=== PATIENT | male | born 1980 | race Caucasian/White ===

== ENCOUNTER 2025-01-16 16:46 | Emergency (ER) | payer BC, SELFPAY ==
[2025-01-16 16:47] VITALS: BP 147/112; PULSE 113; RESP 17; TEMP 36.2; O2SAT 99; BMI 21.2
[2025-01-16 17:33] VITALS: BP 187/105; PULSE 89; RESP 18; O2SAT 100
--- NOTE | 2025-01-16 17:44 | RAD_ITS ---
EXAM: XR Right Knee Complete, 4 or More Views CLINICAL INDICATION: PAIN/SWELLING TECHNIQUE: Four or more views of the right knee. COMPARISON: No relevant prior studies available. FINDINGS: BONES/JOINTS: Unremarkable. No acute fracture. No dislocation. SOFT TISSUES: Unremarkable. RAD/Knee 4 or More Views IMPRESSION: No acute fracture. Reading Location: [id number]
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
[2025-01-16] MEDS: Ketorolac 30 MG/ML Syringe IM (17:55)
[2025-01-16 19:16] VITALS: BP 187/105; PULSE 89; RESP 18; TEMP 36.7; O2SAT 100
== END 2025-01-16 19:17 | disposition home or self-care (01) ==
PROVIDERS: Emergency Provider Student in an Organized Health Care Education/Training Program; Visit Provider Student in an Organized Health Care Education/Training Program
DX: M25.561 Pain in right knee (principal); F17.210 Nicotine dependence, cigarettes, uncomplicated
CPT/HCPCS: 73564; 96372; 99282

== ENCOUNTER → 2025-02-20 | Outpatient (CLI) | payer BC, SELFPAY ==
[2025-02-20 15:37] LABS: Hematocrit 38.4 % (40-54); Hemoglobin 13.3 g/dL (13.0-16.5); Immature Granulocytes Count 0.010 X10^3/uL (0.0-0.0); Mean Corp Hgb Conc 34.6 g/dL (32-36); Mean Corpuscular Volume 86.1 fL (80-94); Mean Platelet Vol. 10.6 fl (6.2-12.0); NRBC Flagged by Analyzer 0 % (0-5); Platelet Count 256 K/mm3 (150-450); RBC Distribution Width CV 12.4 % (11.6-14.6); RBC Distribution Width SD 39.2 fl (35.1-43.9); Red Blood Count 4.46 M/mm3 (4.6-6.2); White Blood Count 7.7 K/mm3 (4.4-11.0)
[2025-02-20 16:54] LABS: CRP 12.40 mg/L (0.0-3.0)
--- OUTSIDE RECORDS SUMMARY | 2025-02-20 19:09 | XMS RPT_ITS | CCD ---
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 Cancer Father prostate mid to late 50s COPD Father Alzheimer's Disease Father Cancer Sister COPD Paternal Grandfather Heart Attack Maternal Grandmother Heart Attack Maternal Grandfather Cancer Maternal Uncle brothers x3. 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 PHYSICAL EXAM BP 146/110 Pulse 87 Resp 16 Ht 176.5 cm (5' 9.5) Wt 62.1 kg (137 lb) SpO2 100% BMI 19.94 kg/m Physical Exam Constitutional: General: He is not in acute distress. Appearance: Normal appearance. He is normal weight. HENT: Head: Normocephalic and atraumatic. Right Ear: Tympanic membrane and ear canal normal. Left Ear: Tympanic membrane and ear canal normal. Nose: Nose normal. No congestion. Mouth/Throat: Mouth: Mucous membranes are moist. Pharynx: Oropharynx is clear. No oropharyngeal exudate or posterior oropharyngeal erythema. Eyes: Extraocular Movements: Extraocular movements intact. Conjunctiva/sclera: Conjunctivae normal. Pupils: Pupils are equal, round, and reactive to light. Neck: Vascular: No carotid bruit. Cardiovascular: Rate and Rhythm: Normal rate and regular rhythm. Pulses: Normal pulses. Heart sounds: Normal heart sounds. No murmur heard. No friction rub. Pulmonary: Effort: Pulmonary effort is normal. No respiratory distress. Breath sounds: Normal breath sounds. No wheezing, rhonchi or rales. Abdominal: General: Bowel sounds are normal. There is no distension. Palpations: Abdomen is soft. Tenderness: There is no abdominal tenderness. There is no right CVA tenderness or left CVA tenderness. Musculoskeletal: General: No swelling or tenderness. Normal range of motion. Cervical back: Normal range of motion and neck supple. Skin: General: Skin is warm and dry. Findings: No erythema or rash. Neurological: General: No focal deficit present. Mental Status: He is alert and oriented to person, place, and time. Cranial Nerves: No cranial nerve deficit. Gait: Gait normal. Psychiatric: Mood and Affect: Mood normal. Speech: Speech normal. Behavior: Behavior is cooperative. Thought Content: Thought content does not include suicidal ideation. Cognition and Memory: Cognition normal. Judgment: Judgment normal. DIAGNOSTICS REVIEWED IMPRESSION / PLAN ASSESSMENT/PLAN: 1. Encounter for annual general medical examination with abnormal findings in adult - ICD9: V70.0, ICD10: Z00.01 (primary diagnosis) Enc healthy diet and exercise. Will get labs. - CBC 2. Hematuria, unspecified type - ICD9: 599.70, ICD10: R31.9 Ongoing for 9 mo. Will refer to urology to eval and will check psa level. - COMP METABOLIC PANEL - PSA/PROSTSPECAG SCRN - CONSULT TO UROLOGY 3. Cigarette nicotine dependence without complication - ICD9: 305.1, ICD10: F17.210 Enc smoking cessation 4. Neuropathy - ICD9: 355.9, ICD10: G62.9 Currently stable. 5. Family history of prostate cancer in father - ICD9: V16.42, ICD10: Z80.42 - PSA/PROSTSPECAG SCRN - CONSULT TO UROLOGY 6. Elevated BP without diagnosis of hypertension - ICD9: 796.2, ICD10: R03.0 Bp elevated today. Enc to monitor bp outside of the office and bring readings to appt. Avoid salt and high sodium foods. Cut back on caffeine and smoking. 7. Uncomplicated alcohol dependence (HCC) - ICD9: 303.90, ICD10: F10.20 Enc to decrease alcohol consumption. - COMP METABOLIC PANEL 8. Screening for malignant neoplasm of prostate - ICD9: V76.44, ICD10: Z12.5 - PSA/PROSTSPECAG SCRN 9. Screening for lipoid disorders - ICD9: V77.91, ICD10: Z13.220 - LIPID PANEL BASIC Annabel Moya APRN.GAS PLANT TECHNICIAN F/u 2 wks for bp check documented in this encounter [facility] 08-17-2022 Nurse Note Summary: establish care Patient states he is having hematuria x 1 year documented in this encounter [facility] 09-16-2021 Note HNO ID: [id number] Author: Babak Garnica APRN.KARTHIK Service: ? Author Type: Nurse Practitioner Type: Progress Notes Filed: 10/26/2021 7:55 AM Note Text: Velia Gordon is a 41 year old male here today acutely because of having: Recheck (Patient states he is here for leg issue, hard feeling vein in right leg and itching ) HPI Review of Systems BP 133/95 Pulse 81 Resp 16 Ht 175.3 cm (5' 9) Wt 59.4 kg (131 lb) SpO2 99% BMI 19.35 kg/m? BMI 19.35 kg/(m2) ALLERGIES Allergen Reactions - Chantix [Vareniclin* Other: See Comments Vivid dreams - Penicillins Physical Exam Follow Up: No follow-ups on file. Voice recognition software utilized. Minor grammatical and/or spelling errors may exist. Portions of this note have been entered by ancillary staff. I have reviewed and when necessary edited, so that they are an adequate record of my encounter with this patient. Medical Decision Making [facility] 07-23-2021 History of Present illness Narrative Velia Gordon is a 41 year old male here today acutely because of having: Follow Up (Follow up from his US) Patient was in the office 6 weeks ago for a burning sensation in his right leg. The symptoms started a long time ago, but he did not get it checked. States that he had a blockage in the leg when he was 18 and they removed the clot. States the leg has several areas of redness on the medial side of the lower leg. Denied any pain in the calf or thigh. Vascular study was negative for clots. Patient states the burning sensation is gone, but the rash to the lower leg is still there. He has tried hydrocortisone and lotion with no improvement. Reports the red area is now flaking. Review of Systems Constitutional: Negative for chills, fatigue and fever. Respiratory: Negative for cough, chest tightness, shortness of breath and wheezing. Cardiovascular: Negative for chest pain and palpitations. Skin: Positive for rash (right lower leg). BP 165/92 (BP Site: Right Arm, BP Position: Sitting, BP Cuff Size: Regular Adult) Pulse 88 Ht 176.5 cm (5' 9.49) Wt 61 kg (134 lb 6.4 oz) SpO2 99% BMI 19.57 kg/m BMI 19.57 kg/(m^2) ALLERGIES Allergen Reactions Chantix [Vareniclin* Other: See Comments Vivid dreams Penicillins Physical Exam Vitals and nursing note reviewed. Constitutional: Appearance: Normal appearance. Neck: Thyroid: No thyromegaly. Trachea: No tracheal deviation. Cardiovascular: Rate and Rhythm: Normal rate and regular rhythm. Heart sounds: Normal heart sounds. No murmur heard. No friction rub. No gallop. Pulmonary: Effort: Pulmonary effort is normal. No respiratory distress. Breath sounds: No stridor. No wheezing or rales. Chest: Chest wall: No tenderness. Skin: General: Skin is warm and dry. Findings: Rash (pink flaking rash to anterior right lower leg and a small area on the back ankle.) present. No erythema. Neurological: Mental Status: He is alert and oriented to person, place, and time. Gait: Gait is intact. Psychiatric: Mood and Affect: Mood and affect normal. Behavior: Behavior normal. Thought Content: Thought content normal. Cognition and Memory: Memory normal. Judgment: Judgment normal. ASSESSMENT/PLAN: 1. Contact dermatitis, unspecified contact dermatitis type, unspecified trigger - ICD9: 692.9, ICD10: L25.9 - Suspect the rash is either contact or psoriasis. Will treat with kenalog lotion and refer to dermatology. - discussed skin care of rash - follow up if symptoms persist or worsen. - TRIAMCINOLONE ACETONIDE 0.025 % LOTION - CONSULT TO DERMATOLOGY Babak Garnica GAS PLANT TECHNICIAN Follow Up: Return if symptoms worsen or fail to improve. Voice recognition software utilized. Minor grammatical and/or spelling errors may exist. Portions of this note have been entered by ancillary staff. I have reviewed and when necessary edited, so that they are an adequate record of my encounter with this patient. Medical Decision Making: Problems: Moderate: 1+ chronic illnesses with change Risk: Moderate: Drug management Medical Decision Making Level: 4 - Moderate documented in this encounter [facility] 06-07-2020 History of Present illness Narrative DATE OF SERVICE: 06/07/2020 HISTORY OF PRESENT ILLNESS: A 45-year-old male with chief complaint of dental pain. Says that started happening yesterday. He rates the pain 10 out of 10. Has been trying Orajel, Anbesol and have not been helping him. He said that he did crack a tooth in one of his right upper molars about a year ago; and since COVID started, he was not able to follow up with his dentist. PAST MEDICAL HISTORY: He has a history of peptic ulcers and depression. MEDICATIONS: He is taking NyQuil but no other daily medications. ALLERGIES: PENICILLIN. SOCIAL HISTORY: Chronic smoker. Drinks alcohol occasionally. FAMILY HISTORY: Heart disease, high blood pressure, and cancer. PHYSICAL EXAMINATION: Vital Signs: Blood pressure is 164/142, pulse 114, respiratory rate 16, temperature 98.7, pulse oximetry is 97%. He says he is in 10 out of 10 pain. Also, he mentioned that his blood pressure is always elevated at doctors' offices and is always normal at home. HEENT: Oral mucosa is moist. He has gingival hypertrophy near the right upper molar. He does have a broken tooth at the right upper molar. Neck: No cervical lymphadenopathy. Heart: Regular rate and rhythm. No murmurs, rubs or gallops. Lungs: Clear to auscultation bilaterally. Extremities: No edema to his upper or lower extremities. ASSESSMENT: 1. Dental infection. 2. Elevated blood pressure, likely due to pain. PLAN: Clindamycin 300 mg 3 times daily for 10 days. Tylenol and Ibuprofen for pain. Monitor blood pressure at the pharmacy and go to the emergency department if it is persistently elevated. Follow up with a dentist. Natali Shipman MD /[id number] [facility] File#: [id number] END OF DOCUMENT / CHANGE LOG FOLLOWS Last Edited By Elec. Signed By Natali Shipman MD #Natali Haque MD #YUNIOR on 06/20/2020 11:38 ET on 06/20/2020 11:38 ET Revision Number - 2 ^^^ Verified/Reviewed by 06/20/20 1138 YUNIOR [facility] PATIENT NAME: VELIA GORDON [address] [place] MEDICAL REC #: [id number] [place] [address] VENICE STATCARE REPORT STATCARE PHYSICIAN documented in this encounter [facility] Evaluation note Diagnosis Contact dermatitis, unspecified contact dermatitis type, unspecified trigger- Primary [facility] Diagnosis Encounter for annual general medical examination with abnormal findings in adult- Primary Hematuria, unspecified type Cigarette nicotine dependence without complication Tobacco use disorder Neuropathy Mononeuritis of unspecified site Family history of prostate cancer in father Elevated BP without diagnosis of hypertension Uncomplicated alcohol dependence (HCC) Other and unspecified alcohol dependence, unspecified drinking behavior Screening for malignant neoplasm of prostate Screening for lipoid disorders [facility] Diagnosis Screening PSA (prostate specific antigen)- Primary Special screening for malignant neoplasm of prostate Gross hematuria [facility] Diagnosis Anxiety- Primary Anxiety state, unspecified Severe episode of recurrent major depressive disorder, without psychotic features (HCC) Primary hypertension Unspecified essential hypertension [facility] Diagnosis Anxiety Anxiety state, unspecified Severe episode of recurrent major depressive disorder, without psychotic features (HCC) documented in this encounter [facility] note* Diagnosis Primary hypertension- Primary Unspecified essential hypertension Insomnia, unspecified type Anxiety Anxiety state, unspecified Severe episode of recurrent major depressive disorder, without psychotic features (HCC) documented in this encounter [facility] noteNo assessment information availableWKindred Hospital [facility] Work Phone: Hospital Discharge instructionsAdditional Instructions Follow-up with the orthopedic doctor below if you do not have improvement of your knee pain/swelling over the next week with RICE therapy. Your evaluation in the Emergency Department did not reveal any acute reason for admission. However, I want to emphasize that you may be early in the course of a disease process or illness even if it is not present. For this reason you should follow-up within 24 hours for reevaluation with either your primary care physician or if necessary back here in the Emergency Department. You should return to the Emergency Department immediately if your symptoms worsen or new symptoms develop.[facility] Work Phone: Reason for referral (narrative)No reason for referral information availableWKindred Hospital [place] Work Phone: Summary Purpose Family History No Family History Records FoundNo Family History Records FoundNo Family History Records FoundNo Family History Records FoundNo Family History Records FoundNo Family History Records FoundNo Family History Records Found Advance Directives No Advanced Directives Records Found Advance Directive Response Recorded Date/ Time Do you have a Healthcare Power of [employer] Tm1 Developer? No January 16, 2025 5:02pm Reason for Referral Specialty Diagnoses / Procedures Referred By Pancho carter Referred To Contact Dermatology Diagnoses Contact dermatitis, unspecified contact dermatitis type, unspecified trigger Procedures CONSULT TO DERMATOLOGY OFFICE/OUTPATIENT NEW HIGH MDM 60-74 MINUTES Babak Garnica, MAMMOGRAPHY TECHNOLOGIST.GAS PLANT TECHNICIAN [address] [place] [address] Erika Swann PA-C [address] [place] [address] Referral ID Status Reason Start Date Expiration Date Visits Requested Visits Authorized [id number] Authorized PCP Requested Referral 07/23/2021 10/21/2021 1 1 Specialty Diagnoses / Procedures Referred By Contac t Referred To Contact Diagnoses Hematuria, unspecified type Family history of prostate cancer in father Procedures CONSULT TO UROLOGY Annabel Moya, MAMMOGRAPHY TECHNOLOGIST.GAS PLANT TECHNICIAN [address] [facility] [address] [place] [address] Velia Hernandez MD [address] [facility] [address] [place] [address] Referral ID Status Reason Start Date Expiration Date Visits Requested Visits Authorized [id number] Ref Not Required PCP Requested Referral 08/17/2022 08/17/2023 1 1 Specialty Diagnoses / Procedures Referred By Pancho t Referred To Contact CT IMAGING Diagnoses Gross hematuria Procedures CT UROGRAM WO/W IVCON CT ABD & PELVIS W/O CONTRST 1+ BODY Geeta Campa, MAMMOGRAPHY TECHNOLOGIST.GAS PLANT TECHNICIAN [address] [place] [address] Ct Imaging Referral ID Status Reason Start Date Expiration Date Visits Requested Visits Authorized [id number] Pending Review Auto-Generat ed Referral 09/28/2022 10/28/2023 1 1 Chief Complaint and Reason for Visit Chief Complaint Admit Date LOWER EXT January 16, 2025 4: 46pm Additional Source Comments (unrecognized sect ion and content) No Status Records FoundNo Status Records FoundNo Status Records FoundNo Status Records FoundNo Status Records FoundNo Status Records FoundNo Status Records Found INFORMATION SOURCE (unrecogn ized section and content) DATE CREATED AUTHOR 10/05/2017 [facility] ([place]) DATE CREATED AUTHOR AUTHOR'S ORGANIZ ATION 06/21/2020 [facility] Jonas Tabor DATE CREATED AUTHOR AUTHOR'S ORGANIZ ATION 08/18/2022 [facility] DATE CREATED AUTHOR AUTHOR'S ORGANIZ ATION 08/21/2022 [facility] DATE CREATED AUTHOR AUTHOR'S ORGANIZ ATION 09/29/2022 [facility] nt DATE CREATED AUTHOR AUTHOR'S ORGANIZ ATION 01/25/2025 [facility] DATE CREATED AUTHOR AUTHOR'S ORGANIZ ATION 01/26/2025 [facility] Source Comments (unrecognize d section and content) In the event this informatio n is protected by the Federal Confidentiality of Alcohol and Drug Abuse Patient Records regulations: The Federal rules restrict any use of the information to criminally investigate or prosecute any alcohol or drug abuse patient.[facility] the event this information is protected by the Federal Confidentiality of Alcohol and Drug Abuse Patient Records regulations: The Federal rules restrict any use of the information to criminally investigate or prosecute any alcohol or drug abuse patient.[facility] Hospital[facility] the event this information is protected by the Federal Confidentiality of Alcohol and Drug Abuse Patient Records regulations: The Federal rules restrict any use of the information to criminally investigate or prosecute any alcohol or drug abuse patient.[facility] Hospital[facility] the event this information is protected by the Federal Confidentiality of Alcohol and Drug Abuse Patient Records regulations: The Federal rules restrict any use of the information to criminally investigate or prosecute any alcohol or drug abuse patient.[facility] Hospital[facility] the event this information is protected by the Federal Confidentiality of Alcohol and Drug Abuse Patient Records regulations: The Federal rules restrict any use of the information to criminally investigate or prosecute any alcohol or drug abuse patient.[facility] HospitalIn the event this information is protected by the Federal Confidentiality of Alcohol and Drug Abuse Patient Records regulations: The Federal rules restrict any use of the information to criminally investigate or prosecute any alcohol or drug abuse patient.[facility] HospitalIn the event this information is protected by the Federal Confidentiality of Alcohol and Drug Abuse Patient Records regulations: The Federal rules restrict any use of the information to criminally investigate or prosecute any alcohol or drug abuse patient.[facility] Hospital[facility] the event this information is protected by the Federal Confidentiality of Alcohol and Drug Abuse Patient Records regulations: The Federal rules restrict any use of the information to criminally investigate or prosecute any alcohol or drug abuse patient.[facility] Reason for Visit (unrecogniz ed section and content) Reason Comments Follow Up Follow up from his U [facility] Reason Comments Establish Care Reason Comments Blood In Urine New patient.Pt state s 4-5 months ago he has peed clots. Pt states he last saw blood in his urine 3 months ago. Reason Comments Establish Care Reason Comments Refill Request Care Teams (unrecognized sec tion and content) Adjunct Sociology Professor Relationship Specialty Start Date End Date Babak Garnica, MAMMOGRAPHY TECHNOLOGIST.GAS PLANT TECHNICIAN [address] [place], [place] [id number] PCP - General 04/20/21 Adjunct Sociology Professor Relationship Specialty Start Date End Date Richei Mckay MD [address] [place], [place] [id number] PCP - General Family Practice 02/06/19 04/19/21 Babak Garnica, MAMMOGRAPHY TECHNOLOGIST.G[employer] PLANT TECHNICIAN [address] [place], [place] [id number] PCP - General 04/20/21 Adjunct Sociology Professor Relationship Specialty Start Date End Date Annabel Moya, MAMMOGRAPHY TECHNOLOGIST.GAS PLANT TECHNICIAN [address] [id number] PCP - General Family Medicine 08/17/22 Adjunct Sociology Professor Relationship Specialty Start Date End Date Annabel Moya, MAMMOGRAPHY TECHNOLOGIST.GAS PLANT TECHNICIAN [address] [id number] PCP - General Family Medicine 08/17/22 Adjunct Sociology Professor Relationship Specialty Start Date End Date Annabel Moya, MAMMOGRAPHY TECHNOLOGIST.GAS PLANT TECHNICIAN [address] [place] [address] [place] [address] PCP - General Family Medicine 08/17/22 Adjunct Sociology Professor Relationship Specialty Start Date End Date Malcom Paula, MAMMOGRAPHY TECHNOLOGIST.GAS PLANT TECHNICIAN [address] [place] [address] PCP - General Internal Medicine 01/25/23 Adjunct Sociology Professor Relationship Specialty Start Date End Date Malcom Paula, MAMMOGRAPHY TECHNOLOGIST.GAS PLANT TECHNICIAN [address] [facility], [place] [phone] PCP - General Internal Medicine 01/25/23 Adjunct Sociology Professor Relationship Specialty Start Date End Date Malcom Paula, MAMMOGRAPHY TECHNOLOGIST.GAS PLANT TECHNICIAN [address] [facility], [place] [phone] PCP - General Internal Medicine 01/25/23 Team Status: Active Member Role/Relationship Status Dates No Primary Care Physician Primary care physician Activ e Team Status: Inactive Member Role/Relationship Status Dates Dr. Den[facility] Active Start: January 16, 2025 End: January 16, 2025 No Primary Care Physician Primary care physician Activ e Start: January 16, 2025 End: January 16, 2025 Goals (unrecognized section and content) Goals may be documented in a n alternate section FOR RECORDS PERTAINING TO PATIENTS WHO ARE OR HAVE BEEN ENROLLED IN A CHEMICAL DEPENDENCY/SUBSTANCEABUSE PROGRAM, SOME INFORMATION MAY BE OMITTED. This clinical summary was aggregated from multiple sources. Caution should be exercised in using it in the provision of clinical care. This summary normalizes information from multiple sources, and as a consequence, information in this document may materially change the coding, format and clinical context of patient data. In addition, data may be omitted in some cases. CLINICAL DECISIONS SHOULD BE BASED ON THE PRIMARY CLINICAL RECORDS. [employer] provides no warranty or guarantee of the accuracy or completeness of information in this document.
[2025-02-20 19:28] LABS: Synovial Fld Mononuclear WBC # 3.417 10^3/ul; Synovial Fld Mononuclear WBC % 19.8 %; Synovial Fld Polynuclear WBC # 13.911 10^3/uL; Synovial Fld Polynuclear WBC % 80.2 %
[2025-02-20 19:53] LABS: RBC /Synovial Fluid 0.013 10^6/uL (0)
[2025-02-20 19:55] LABS: AUTO B FLUID DILUENT BKGD CT WBC <0.1 RBC <0.01 (W<.1,R<.01); Source / Synovial Fluid RIGHT KNEE; Source- Body Fluid SYNOVIAL
[2025-02-20 20:01] LABS: Color / Synovial Fluid Yellow (Pale Yellow)
[2025-02-20 20:02] LABS: Appearance /Synovial Fluid Turbid (CLEAR)
[2025-02-20 22:29] LABS: CRYSTALS, BODY FLUID NO CRYSTALS SEEN
[2025-02-20 22:51] LABS: Monocyte /Synovial Fluid 12 %
[2025-02-20 22:53] LABS: Body Fluid QC Type(s) BF2Q, BF3Q
== END | disposition home or self-care (01) ==
LOC: LAB 14:39
PROVIDERS: Referring Provider Orthopaedic Surgery; Visit Provider Orthopaedic Surgery
DX: S83.271D Complex tear of lateral meniscus, current injury, right knee, subsequent encounter (principal); M25.462 Effusion, left knee
CPT/HCPCS: 85025; 85652; 86140; 87070; 87075; 87205; 89050; 89051; 89060